=== PATIENT | male | born 1980 | race Caucasian/White ===

== ENCOUNTER 2020-03-05 21:38 | Emergency (ER) | payer MEDICAID ==
[2020-03-05 21:44] VITALS: Wt 68.2 kg
[2020-03-05 22:15] LABS: BASOPHILS 0.1 % (0-2); EOSINOPHILS 1.6 % (0-7); HEMATOCRIT 42.9 % (42.0-54.0); HEMOGLOBIN 14.5 g/dL (13.5-17.5); IMMATURE GRANULOCYTES 0.3 % (0-5); LYMPHOCYTES 35.6 % (15-50); MCH 31.2 pg (26.0-34.0); MCHC 33.8 g/dL (31.0-37.0); MCV 92.3 fL (80.0-100.0); MEAN PLATELET VOLUME 10.8 fL (7.4-10.4); MONOCYTES 6.9 % (2-11); NEUTROPHILS 55.5 % (40-80); PLATELET COUNT 295 10x3/uL (130-400); RBC 4.65 10x6/uL (4.20-6.10); RDW 13.3 % (11.5-14.5); WBC 7.7 10x3/uL (4.8-10.8)
[2020-03-05 22:24] LABS: BILIRUBIN NEGATIVE (NEGATIVE); KETONE NEGATIVE (NEGATIVE); NITRITE NEGATIVE (NEGATIVE); UROBILINOGEN NORMAL (NORMAL)
[2020-03-05 22:25] LABS: WHITE CELLS - URINE 25-50 /hpf (0-5)
[2020-03-05 22:25] LABS: CALC OSMOLALITY 275 mosm/kg (275-300); CALCIUM 9.2 mg/dL (8.5-10.1); CARBON DIOXIDE 29.8 mmol/L (21.0-32.0); CHLORIDE - SERUM 105 mmol/L (98-107); CREATININE - SERUM 1.1 mg/dL (0.6-1.3); GLUCOSE 120 mg/dL (74-106); POTASSIUM - SERUM 5.5 mmol/L (3.5-5.1); SODIUM 138 mmol/L (136-145); UREA NITROGEN 11 mg/dL (7-18); eGFR NON AFRICAN AMERICAN 79 mL/min (90-120)
[2020-03-05 22:27] LABS: BACTERIA MODERATE /hpf (NONE SEEN); UDS - AMPHET POSITIVE QUAL (NEGATIVE); UDS - BARB NEGATIVE QUAL (NEGATIVE); UDS - BENZO NEGATIVE QUAL (NEGATIVE); UDS - COCAINE NEGATIVE QUAL (NEGATIVE); UDS - OPIATE NEGATIVE QUAL (NEGATIVE); UDS - PCP NEGATIVE QUAL (NEGATIVE); UDS - THC POSITIVE QUAL (NEGATIVE)
[2020-03-05 22:49] LABS: ALBUMIN 3.7 g/dL (3.4-5.0); ALKALINE PHOSPHATASE 115 U/L (30-120); ALT (SGPT) 22 U/L (10-68); BILIRUBIN - TOTAL 0.43 mg/dL (0.2-1.3); CREATINE KINASE 256 UL (21-232); LIPASE 159 U/L (73-393); MAGNESIUM - SERUM 2.2 mg/dL (1.8-2.4); PROTEIN - SERUM 6.7 g/dL (6.4-8.2); THYROID STIMULATING HORMONE 1.73 uIU/mL (0.36-3.74)
[2020-03-05 22:51] LABS: CKMB 1.2 U/L (0.0-3.6)
[2020-03-05 23:48] VITALS: BP 162/98
== END 2020-03-05 23:49 | disposition home or self-care (01) ==
LOC: D.ER 21:38
PROVIDERS: Family Medicine
DX: R41.82 Altered mental status, unspecified (principal); F19.10 Other psychoactive substance abuse, uncomplicated; F20.0 Paranoid schizophrenia; N34.2 Other urethritis

== ENCOUNTER 2020-11-10 12:38 | Emergency (ER) | payer MEDICAID ==
[~2020-11-10] VITALS: Ht 165.1 cm; Wt 68.2 kg
[2020-11-10 12:42] VITALS: BP 134/94; Ht 165.1 cm; Wt 68.2 kg
== END 2020-11-10 12:55 | disposition left against medical advice (07) ==
LOC: D.ER 12:38
DX: R42 Dizziness and giddiness (principal); Z53.29 Procedure and treatment not carried out because of patient's decision for other reasons